=== PATIENT | male | born 1985 | race Two or more races ===

== ENCOUNTER 2023-04-11 22:23 | Emergency (ER) | payer OTHER ==
[2023-04-11] MEDS ORDERED: LORazepam 2 MG/ML VIAL IVP STA (22:39)
[2023-04-11 23:32] LABS: ACETAMINOPHEN 9 ug/mL (10-30); ALBUMIN 4.5 g/dL (3.2-5.5); ALBUMIN/GLOBULIN RATIO 1.4 (1.0-2.2); ALKALINE PHOSPHATASE 90 IU/L (42-121); ALT ALANINE AMINOTRANSFERASE 39 IU/L (10-60); AST ASPARTATE AMINOTRANSFERASE 66 IU/L (10-42); BILIRUBIN,TOTAL 0.7 mg/dL (0.2-1.0); BUN - BLOOD UREA NITROGEN 20 mg/dL (6-20); CARBON DIOXIDE - CO2 28 mmol/L (21-32); CHLORIDE 103 mmol/L (101-111); CREATININE 0.9 mg/dL (0.6-1.2); ETOH - ETHANOL < 10.0 mg/dL; GFR - MDRD 95 (>89); GLUCOSE 120 mg/dL (70-100); LIPASE 42 U/L (22-51); POTASSIUM 2.9 mmol/L (3.5-5.0); SALICYLATE 5.9 mg/dL; SODIUM 139 mmol/L (135-145); TOTAL PROTEIN 7.8 g/dL (6.7-8.2)
[2023-04-11 23:39] LABS: BASOPHILS # (AUTO) 0.1 10^3/uL (0.0-0.1); BASOPHILS % (AUTO) 0.7 %; EOSINOPHILS # (AUTO) 0.1 10^3/uL (0.0-0.7); EOSINOPHILS % (AUTO) 1.6 %; HGB - HEMOGLOBIN 12.6 g/dL (14.0-18.0); LYMPHOCYTES # (AUTO) 1.8 10^3/uL (1.5-3.5); LYMPHOCYTES % (AUTO) 26.2 %; MEAN CORPUSCULAR HEMOGLOBIN 30.7 pg (27.0-31.0); MEAN CORPUSCULAR HGB CONC 34.1 g/dL (32.0-36.0); MEAN PLATELET VOLUME 10.3 fL (7.4-11.4); MONOCYTES # (AUTO) 0.8 10^3/uL (0.0-1.0); MONOCYTES % (AUTO) 11.8 %; NEUTROPHILS % (AUTO) 59.6 %; PLT - PLATELET COUNT 267 10^3/uL (130-450); RED BLOOD COUNT 4.11 10^6/uL (4.70-6.10); RED CELL DISTRIBUTION WIDTH 12.6 % (12.0-15.0); WHITE BLOOD COUNT 6.7 x10^3/uL (4.8-10.8)
[2023-04-11 23:40] LABS: MUDS CUTOFF CONCENTRATIONS CUTOFF CONC BELOW:
[2023-04-11 23:41] LABS: AMPHETAMINE SCREEN,URINE NEGATIVE (NEGATIVE); BARBITURATE SCREEN,UR NEGATIVE (NEGATIVE); BENZODIAZEPINES SCREEN, URINE NEGATIVE (NEGATIVE); COCAINE SCREEN URINE NEGATIVE (NEGATIVE); METHADONE SCREEN, URINE NEGATIVE (NEGATIVE); METHAMPHETAMINES SCREEN, URINE NEGATIVE (NEGATIVE); OPIATE SCREEN, URINE NEGATIVE (NEGATIVE); OXYCODONE SCREEN, URINE NEGATIVE (NEGATIVE); PROPOXYPHENE SCREEN, URINE NEGATIVE (NEGATIVE); THC CANNABINOID SCREEN, URINE POSITIVE (NEGATIVE); TRICYCLIC ANTIDEPRESSANT,URINE NEGATIVE (NEGATIVE)
--- NOTE | 2023-04-12 00:03 | CT Report ---
PROCEDURE: HEAD WO INDICATIONS: NEW PSYCHOSIS TECHNIQUE: Noncontrast 4.5 mm thick angled axial sections acquired from the foramen magnum to the vertex. For r adiation dose reduction, the following was used: automated exposure control, adjustment of mA and/or kV according to patient size. COMPARISON: None. FINDINGS: Image quality: Excellent. CSF spaces: Basal cisterns are patent. No extra-axial fluid collections. Ventricles are normal in size and shape. Brain: No intracranial hemorrhage, mass, or mass effect. Lilly-white matter interface appears preser pillo. Skull and face: Calvarium and visualized facial bones are intact, without suspicious lesions. Sinuses: Visualized sinuses and mastoids are clear. IMPRESSION: 1. No acute intracranial abnormality. Reviewed by: Andres Muro MD on 04/12/2023 12:02 AM PDT Approved by: Andres Muro MD on 04/12/2023 12:02 AM PDT Station ID: [id number]
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
[2023-04-12] MEDS ORDERED: PIPERONYL BUTOXIDE/PYRETHRINS 59 ML BOTTLE TOP ONE (01:19)
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
[2023-04-12] MEDS ORDERED: POTASSIUM BICARB 25 MEQ TABLET PO STA (07:27)
[2023-04-12] MEDS ORDERED: risperiDONE 0.25 MG TABLET PO STA (07:29)
[2023-04-12 12:02] VITALS: BP 117/77
--- NOTE | 2023-04-12 12:02 | ED Physician Documentation ---
ED Addendum - Addendum Addendum: 04/12/23 12:02 Seen by the DCR and detained to [facility]. Cobras are completed and he is stable for transport. He very much wants a prescription for permethrin. I discussed with him that I would be willing to prescribe this given its benign nature, but there is no evidence of scabies and we think this is delusional so it is probably unnecessary and he voices understanding but still wants the prescription. Disposition: Transfer to psychiatric facility Condition: Stable
[2023-04-12] MEDS ORDERED: risperiDONE 0.25 MG TABLET PO SCH (21:00)
== END 2023-04-12 12:43 ==
LOC: ED 22:23
DX: F31.2 Bipolar disorder, current episode manic severe with psychotic features (principal); Z20.822 Contact with and (suspected) exposure to COVID-19
CPT/HCPCS: 36415; 70450; 80053; 80306; 80307; 80320; 80329; 83690; 85025; 87635; 93005; 99284; 99285; A9270; G0425; Q3014

== ENCOUNTER 2023-04-12 12:42 | Outpatient (CLI) | payer OTHER | END 2023-04-12 23:59 | LOC: EMS 12:42 | PROVIDERS: ATTEND Emergency Medicine | DX: F22 Delusional disorders (principal) | CPT/HCPCS: A0425; A0428 ==

== ENCOUNTER 2023-06-07 09:30 | Outpatient (CLI) | payer OTHER | END 2023-06-07 09:45 | disposition home or self-care (01) | LOC: LAB.N 09:30 | PROVIDERS: ATTEND Emergency Medicine | DX: R05.1 Acute cough (principal) | CPT/HCPCS: 87070; 87077; 87205 ==

== ENCOUNTER 2023-11-30 12:18 | Outpatient (CLI) | payer OTHER ==
[2023-11-30 17:55] LABS: BASOPHILS % (AUTO) 0.8 %; EOSINOPHILS # (AUTO) 0.2 10^3/uL (0.0-0.7); EOSINOPHILS % (AUTO) 3.8 %; HCT - HEMATOCRIT 44.2 % (42.0-52.0); LYMPHOCYTES # (AUTO) 2.4 10^3/uL (1.5-3.5); LYMPHOCYTES % (AUTO) 51.5 %; MEAN CORPUSCULAR HEMOGLOBIN 29.9 pg (27.0-31.0); MEAN CORPUSCULAR HGB CONC 31.7 g/dL (32.0-36.0); MEAN CORPUSCULAR VOLUME 94.2 fL (80.0-94.0); MEAN PLATELET VOLUME 10.8 fL (7.4-11.4); MONOCYTES # (AUTO) 0.4 10^3/uL (0.0-1.0); MONOCYTES % (AUTO) 8.9 %; NEUTROPHILS # (AUTO) 1.7 10^3/uL (1.5-6.6); NEUTROPHILS % (AUTO) 34.8 %; PLT - PLATELET COUNT 277 10^3/uL (130-450); RED BLOOD COUNT 4.69 10^6/uL (4.70-6.10); RED CELL DISTRIBUTION WIDTH 13.8 % (12.0-15.0); WHITE BLOOD COUNT 4.7 x10^3/uL (4.8-10.8)
[2023-11-30 19:02] LABS: ALBUMIN 4.9 g/dL (3.2-5.5); ALBUMIN/GLOBULIN RATIO 1.5 (1.0-2.2); BILIRUBIN,TOTAL 0.3 mg/dL (0.2-1.0); CREATININE 0.9 mg/dL (0.6-1.3); POTASSIUM 4.2 mmol/L (3.5-4.5); TOTAL PROTEIN 8.2 g/dL (6.4-8.9)
== END 2023-11-30 12:19 | disposition home or self-care (01) ==
LOC: LAB.N 12:18
PROVIDERS: ATTEND Internal Medicine Infectious Disease
DX: Z21 Asymptomatic human immunodeficiency virus [HIV] infection status (principal)
CPT/HCPCS: 36415; 80053; 81599; 85025